=== PATIENT | female | born 1960 | race Caucasian/White ===

== ENCOUNTER → 2017-04-01 12:18 | Outpatient (CLI) | payer MEDICARE, BC ==
--- NOTE | ~2017-04-01 | EEG ---
PATIENT:EMERSON LEE DATE OF SERVICE: 04/01/17 MEDICAL RECORD: [id number] DATE OF : 60 LOCATION: [facility] ADMISSION DATE: 04/01/17 REFERRING PHYSICIAN: INTERPRETING PHYSICIAN: TALHA COLLINS MD DATE OF SERVICE: 04/01/2017 Referred as an outpatient by myself. ELECTROENCEPHALOGRAM NUMBER: [id number]. DATE OF EXAMINATION: 04/01/2017 at 1:20 p.m. DATE OF : 1960 TECHNICAL DATA: This electroencephalographic recording consists of approximately 20 minutes of data collection utilizing the international 10/20 system of electrode placement and both referential and non-referential montages. Sixteen channels of electrocerebral recording are accompanied by a 17th channel dedicated to the electrocardiographic rhythm and 2 channels of electromyographic recording. Recording is performed entirely in the waking state utilizing activation by hyperventilation and photic stimulation. ELECTROENCEPHALOGRAPHIC DATA: The awake state comprises the entirety of the recorded electrocerebral activity. Electromyographic artifact is prominent and partially obscures the recorded electrocerebral activity. Rapid eye movements are seen throughout. The posterior dominant background consists of a symmetric, semi-arrhythmic, waxing and waning 7-8 Hz alpha activity, which is suppressed by eye opening. No abnormal nor focal slowing is identified. No epileptiform discharges are seen. Hyperventilation and photic stimulation induced no abnormal change in the recorded electrocerebral activity. INTERPRETATION: Normal (awake). This is a normal electroencephalographic recording. TRANSINT:[id number] Voice Confirmation ID: [id number] DOCUMENT ID: [id number] TALHA COLLINS MD CC: [id number] DICTATION DATE: 04/02/17 07 [facility] DIAGNOSTICIAN: 04/02/17 0902 DEP CLI 04/01/17 [facility] [address] [place] [address]
== END | disposition home or self-care (01) ==
LOC: D.CN 12:18
DX: R56.9 Unspecified convulsions (principal); F31.32 Bipolar disorder, current episode depressed, moderate; F43.10 Post-traumatic stress disorder, unspecified